=== PATIENT | female | born 1955 | race Caucasian/White ===

== ENCOUNTER 2016-11-08 10:02 | Inpatient (IN) ==
[2016-11-08] MEDS ORDERED: SODIUM CHLORIDE 0.9% 1,000 ML IV STA (10:55)
[2016-11-08 10:57] LABS: Basophils # 0.1 10*3/uL (0.0-0.2); Basophils % 0.4 % (0.0-0.8); Eosinophils # 0.1 10*3/uL (0.0-0.87); Eosinophils % 0.3 % (0.00-10.9); Hematocrit 43.4 VOL% (35.7-47.0); Hemoglobin 14.7 GM/DL (12.0-16.0); Immature Granulocytes % 0.9 %; Immature Granulocytes Absolute 0.28 #; Lymphocytes # 3.4 10*3/uL (1.4-4.0); Lymphocytes % 11.2 % (21.3-54.2); Mean Corpuscular HGB Conc 33.9 GM/DL (32-36); Mean Corpuscular Hemoglobin 30 PG (27-34); Mean Corpuscular Volume 88.4 FL (87-102); Mean Platelet Volume 11.7 FL (9.6-12.0); Monocytes # 2.2 10*3/uL (0.11-0.8); Monocytes % 7.5 % (1.7-12.7); Neutrophils % 79.7 % (38.7-73.9); Platelet Count 299 T/CUMM (130-400); Red Blood Count 4.91 MC/CUMM (3.8-5.5); Red Cell Distribution Width 13.2 % (9.3-17.3)
--- NOTE | 2016-11-08 11:05 | Emergency Department Note ---
Arrival - Arrival Chief Complaint: Upper Respiratory Stated Complaint: Flu/dehydrated ED Nursing Triage Note: pt to triage via wc with c/o having cold s/s. pt states onset sunday. states having sinus congestion, sore throat, coughing, headache, body aches, chills. Mode of Arrival: Wheelchair Time Seen by Provider: 11/08/16 10:24 - History of Present Illness HPI Narrative: Patient presents to the ER today with complaints of headache, congestion, fever , productive cough, sore throat, chills, and body aches since Sunday night. Reports a max temp of 101 and states she is coughing up thick green sputum. She states she got some medicine from her brother on Sunday and thought it was a Z-Dion but it ended up being in a Medrol Dosepak that she took 4 days of. She does report she is a smoker but is trying to quit. PCP-Dr. Singh Allergies-sulfa PMHx-hypertension, neuropathy, bipolar, depression Allergies/Adverse Reactions: Allergies Allergy/AdvReac Type Severity Reaction Status Date / Time Sulfa (Sulfonamide Allergy RASH Verified 11/08/16 10:10 Antibiotics) Home Medications: Home Medications Medication Instructions Recorded Confirmed Type Propranolol HCl [Propranolol Tab] 40 mg PO BEDTIME 11/08/16 11/08/16 History hydroCHLOROthiazide 25 mg PO DAILY 11/08/16 11/08/16 History [Hydrochlorothiazide] traZODone [Desyrel] 150 mg PO BEDTIME 11/08/16 11/08/16 History Review of System - Review of System 12 point system: reviewed and no additional remarkable complaints except as stated - Review of System Constitutional: Present: as per HPI, chills, fever Head/Ears/Nose/Throat: Present: see HPI, sore throat Respiratory: Present: as per HPI, cough Cardiovascular: Absent: chest pain Neurological: Present: headache Medical,Surgical,& Family Hx - Medical History Cardio: History of: Hypertension Psychological: History of: Bipolar Disorder, Depression - Social History Smoking Status: Current every day smoker Frequency of Alcohol Use: None Type of Drug Use: None Exam Physical Examination: General General appearance: 61-year-old white female is alert and in no apparent distress - Head Head exam: Present: atraumatic, normocephalic, normal inspection - Eye Eye exam: Present: normal appearance, PERRL, EOMI - ENT ENT exam: Present: normal exam, normal oropharynx, mucous membranes moist - Neck Neck exam: Present: normal inspection, full ROM, trachea midline - Chest Chest inspection: Present: normal inspection, symmetric chest wall rise - Respiratory Respiratory exam: Present: Coarse rhonchi noted to the left and lower right lungs, coarse lung sounds of her right - Cardiovascular Cardiovascular exam: Present: regular rate, normal rhythm, normal heart sounds - Abdominal Exam Abdominal exam: Present: soft, normal bowel sounds - Rectal Exam Rectal exam: Present: deferred - Extremities Exam Extremities exam: Present: normal inspection, full ROM, normal capillary refill - Back Exam Back exam: Present: normal inspection, full ROM - Neurological Exam Neurological exam: Present: alert, oriented X3, CN II-XII intact - Psychiatric Psychiatric exam: Present: normal affect, normal mood - Skin Skin exam: Present: warm, dry, intact, normal color, Vital Signs: Vital Signs Temperature 98.3 F 11/08/16 15:23 Pulse Rate 95 H 11/08/16 15:23 Respiratory Rate 18 11/08/16 15:23 Blood Pressure 160/77 11/08/16 15:23 O2 Sat by Pulse Oximetry 95 11/08/16 15:23 Results - Labs CBC & BMP: 11/08/16 10:55 11/08/16 10:55 Lab Results: I have reviewed the patients labs Labs: Laboratory Tests 11/08/16 10:55 WBC 30.0 H RBC 4.91 Hgb 14.7 Hct 43.4 MCV 88.4 MCH 30 MCHC 33.9 RDW 13.2 Plt Count 299 MPV 11.7 Neut % (Auto) 79.7 H Lymph % (Auto) 11.2 L Perry % (Auto) 7.5 Eos % (Auto) 0.3 Baso % (Auto) 0.4 Neut # (Auto) 24.0 H Lymph # (Auto) 3.4 Perry # (Auto) 2.2 H Lymphocytes 13 L Laboratory Tests 11/08/16 10:55 Sodium 130 L Potassium 5.1 Chloride 98 Carbon Dioxide 21 Anion Gap 16.1 H BUN 7 Creatinine 0.80 GFR Calculation 84 BUN/Creatinine Ratio 8.00 Glucose 87 Calculated Osmolality 256.8 L Calcium 9.1 Total Bilirubin 0.80 AST 66 H ALT 40 Alkaline Phosphatase 130 H Total Protein 7.7 Albumin 3.2 L Globulin 4.5 H Albumin/Globulin Ratio 0.7 L Laboratory Tests 11/08/16 10:50 Urine Color Yellow Urine Appearance Clear Urine pH 6.0 Ur Specific [place] 1.008 Urine Protein 30 Urine Glucose (UA) Negative Urine Ketones Negative Urine Blood Small Urine Nitrate Negative Urine Bilirubin Negative Urine Urobilinogen < 2.0 H Urine Leukocytes Negative Urine RBC <1 Urine WBC <1 Ur Squamous Epith Cells Occasional Urine Mucus Occasional Ur Culture Indicated? Not indicated Laboratory Tests 11/08/16 10:50 Urine Opiates Screen Negative Ur Barbiturates Screen Negative Ur Phencyclidine Scrn Negative U Amphetamine/Methamph Negative U Benzodiazepines Scrn Negative U Cocaine Metab Screen Negative U Cannabinoids Screen Negative - Impressions Ordering Physician: Kiki Escobedo NP Date of Service: 11/08/16 Procedure(s): XR chest 2V Accession Number(s): [id number] cc: Kiki Escobedo [employer]PERATOR~ XR chest 2V Indication: Congestion Comparison: Chest x-ray dated November 19, 2014 Technique: Frontal and lateral views of the chest. Findings: The cardiomediastinal silhouette is stable in configuration. Chronic/emphysematous change of the lungs without focal consolidation, pleural effusion, or pneumothorax. Visualized osseous and surrounding soft tissue structures appear grossly unchanged. IMPRESSION: Stable chest x-ray. Chronic/emphysematous change of the lungs. PROCEDURE INTERPRETED AT [facility] DEPARTMENT OF RADIOLOGY Final Report Signed by: Dr Carlos Lobato - Diagnostic Findings Procedure: Chest x-ray: report reviewed by me, image reviewed by me (See Impression ) Disposition Clinical Impression: Upper respiratory infection, COPD (chronic obstructive pulmonary disease) Case discussed with: patient, patient's family Disposition: Still a Patient Condition: Stable
[2016-11-08 11:09] LABS: Apearance,Urine CLEAR (Clear); Bilirubin,Urine Negative (Negative); Blood, Urine Small mg/dL (Negative); Glucose,Urine (UA) Negative (Negative); Ketones,Urine Negative (Negative); Mucus,Urine Occasional /LPF (Occasional); Nitrite,Urine Negative (Negative); Protein,Urine 30 MG/DL; RBC,Urine <1 /HPF (0-4); Squamous Epithelial Cell,Urine Occasional /HPF (0-10); Urine Color Yellow (Yellow); Urine Specific Gravity 1.008 (1.001-1.035); Urine Urobilinogen < 2.0 EU/DL (0.2-1.0); WBC,Urine <1 /HPF (0-6)
[2016-11-08 11:20] LABS: Barbiturates Screen,Urine Negative (Negative); Benzodiazepines Screen,Urine Negative (Negative); Cannabinoid Screen,Urine Negative (Negative); Opiate Screen,Urine Negative (Negative); Phencyclidine Screen,Urine Negative (Negative)
[2016-11-08 11:38] LABS: Band Neutrophils 1 % (0-10); Hypochromasia 1+; Lymphocytes 13 % (20-55); Microcytosis 1+; Platelet Estimate Adequate; Segmented Neutrophils 80 % (50-85); Total Cells Counted 100
[2016-11-08 11:46] LABS: Albumin 3.2 G/DL (3.4-5.0); Bilirubin,Total 0.8 MG/DL (0.2-1.0); Calcium 9.1 MG/DL (8.5-10.1); Osmolality,Calculated 256.8 MOS/KG (273-304); Potassium 5.1 MMOL/L (3.5-5.1); Total Protein 7.7 G/DL (6.4-8.3)
--- NOTE | 2016-11-08 11:58 | XRay Report ---
XR chest 2V Indication: Congestion Comparison: Chest x-ray dated November 19, 2014 Technique: Frontal and lateral views of the chest. Findings: The cardiomediastinal silhouette is stable in configuration. Chronic/emphysematous change of the lungs without focal consolidation, pleural effusion, or pneumothorax. Visualized osseous and surrounding soft tissue structures appear grossly unchanged. IMPRESSION: Stable chest x-ray. Chronic/emphysematous change of the lungs. PROCEDURE INTERPRETED AT [facility] DEPARTMENT OF RADIOLOGY Final Report Signed by: Dr Carlos Lobato
[2016-11-08] MEDS ORDERED: cefTRIAXone 1,000 MG in SODIUM CHLORIDE 0.9% 100 ML IV STA (13:28)
[2016-11-08] MEDS ORDERED: cefTRIAXone 1,000 MG VIAL ONE (13:29)
[2016-11-08] MEDS ORDERED: ACETAMINOPHEN 325 MG TABLET PO PRN (15:31)
[2016-11-08] MEDS ORDERED: ALBUTEROL 2.5 MG/3 ML NEB RESP TX PRN (15:31)
[2016-11-08] MEDS ORDERED: ALBUTEROL/IPRATROPIUM 3 ML NEB RESP TX PRN (15:31)
--- NOTE | 2016-11-08 15:39 | Hospitalist History & Physical ---
<Lane Diggs - Last Filed: 11/08/16 15:34> Assessment and Plan (1) COPD (chronic obstructive pulmonary disease) Status: Acute Assessment and plan: Admit patient. Give IV antibiotics. PRN breathing treatments. Current Visit: Yes (2) Tobacco abuse Status: Acute Assessment and plan: Smoker for 47 years Current Visit: Yes (3) Depression Status: Chronic Current Visit: Yes (4) Anxiety Status: Chronic Current Visit: Yes History of Present Illness Chief complaint: upper respiratory infection History of present illness: Ms. Aponte is a 61 year old white female with a history of hypertension, neuropathy, bipolar disorder, and depression that presents to the ED today with complaints of headache, congestion, fever, productive cough, and body aches since Sunday. Pt. also reports some mild nausea and diarrhea but no vomiting. She reports a max temp and 101 and states that she just does not "feel good". Pt. states that the cough is productive and is thick and green in color. She denies chest pain, She states that when she first got sick she took medication from her brother on Sunday because she thought it was a Zpack but it turns out it was some steroids. It was a Medrol Dosepak and she took 4 days of the medicine. Pt reports being an everyday smoker but states she quit this morning. Pt. denies any other issues in the ED at this time. Pt's WBC is 30. She also has a Na of 130. CXR shows negative chest XR that reveals chronic/emphysematous change of the lungs. She will be admitted to the hospitalist service for further eval and treatment. Home Medications Medication Instructions Recorded Confirmed Type Propranolol HCl [Propranolol Tab] 40 mg PO BEDTIME 11/08/16 11/08/16 History hydroCHLOROthiazide 25 mg PO DAILY 11/08/16 11/08/16 History [Hydrochlorothiazide] traZODone [Desyrel] 150 mg PO BEDTIME 11/08/16 11/08/16 History Allergies Allergy/AdvReac Type Severity Reaction Status Date / Time Sulfa (Sulfonamide Allergy RASH Verified 11/08/16 10:10 Antibiotics) Medical,Surgical,& Family Hx - Medical History Cardio: History of: Hypertension Psychological: History of: Bipolar Disorder, Depression - Social History Smoking Status: Current every day smoker Frequency of Alcohol Use: None Type of Drug Use: None Functional capacity: independent ambulation - Constitutional Constitutional: Present: chills, fever(s), night sweats, weakness - EENT Eyes: Present: requires corrective lense. Absent: blurry vision Ears: Absent: decreased hearing Nose, mouth and throat: Present: headache(s). Absent: hoarseness - Cardiovascular Cardiovascular: Absent: chest pain at rest, dyspnea, edema - Respiratory Respiratory: Present: cough (productive) - Gastrointestinal Gastrointestinal: Present: nausea. Absent: abdominal pain, vomiting - Genitourinary Genitourinary: Absent: difficulty urinating - Neurological Neurological: Present: headache(s). Absent: confusion, dizziness - Psychiatric Psychiatric: Present: anxiety, depression Exam - Constitutional Vitals: Period Temp Pulse Resp BP Sys/Chang Pulse Ox Last 24 Hr 98.3 F-98.3 F 79-87 18-18 123-173/83-109 96 General appearance: normal weight, no acute distress - Head Head exam: Present: normal inspection, normocephalic - Eye Eye exam: Present: EOMI. Absent: scleral icterus Pupils: Present: ALE - Respiratory Respiratory exam: Present: other (coarse). Absent: wheezes - Cardiovascular Cardiovascular exam: Present: regular rate and rhythm - GI/Abdominal GI/Abdominal exam: Present: normal bowel sounds, soft. Absent: tenderness - Extremities Exam Extremities exam: Present: normal capillary refill. Absent: edema - Neurological Exam Neurological exam: Present: alert, oriented X3 - Psychiatric Psychiatric exam: Present: normal affect, normal mood - Skin Skin exam: Present: normal color, warm, dry Results - Labs CBC & BMP: 11/08/16 10:55 11/08/16 10:55 Lab Results: I have reviewed the past 24 hour labs <Antonio Gutierrez - Last Filed: 11/08/16 16:31> History of Present Illness History of present illness: Patient seen and examined independently of BOOKING CLERK Diggs, agree with history, assessment and plan as documented. 61 y/o WF being admitted with COPD exacerbation. Will treat with scheduled duonebs and abx for now. Leukocytosis most likely secondary to steroid use. Patient also with hyponatremia. Will check osmolality. IV NS for now. Exam - Constitutional Vitals: Period Temp Pulse Resp BP Sys/Chang Pulse Ox Last 24 Hr 98.3 F-98.3 F 79-95 18-18 123-173/77-109 95-96 Results - Labs CBC & BMP: 11/08/16 10:55 11/08/16 10:55
[2016-11-08] MEDS: NICOTINE 21 MG/24 HR PATCH TRANSDERM PRN (15:59)
[2016-11-08] MEDS: SODIUM CHLORIDE 0.9% 1,000 ML IV SCH (16:00)
[2016-11-08] MEDS: AZITHROMYCIN INJ 500 MG in SODIUM CHLORIDE 0.9% 250 ML IV SCH (16:39)
[2016-11-08] MEDS: ALBUTEROL/IPRATROPIUM 3 ML NEB RESP TX SCH ×2 (20:03→23:35)
[2016-11-08] MEDS: PROPRANOLOL 40 MG TABLET PO SCH (20:52)
[2016-11-09] MEDS: SODIUM CHLORIDE 0.9% 1,000 ML IV SCH (03:00)
[2016-11-09] MEDS: ALBUTEROL/IPRATROPIUM 3 ML NEB RESP TX SCH ×5 (03:17→20:31)
[2016-11-09 07:28] LABS: Basophils # 0.1 10*3/uL (0.0-0.2); Basophils % 0.2 % (0.0-0.8); Eosinophils # 0.1 10*3/uL (0.0-0.87); Eosinophils % 0.5 % (0.00-10.9); Hematocrit 36.5 VOL% (35.7-47.0); Hemoglobin 12.1 GM/DL (12.0-16.0); Immature Granulocytes % 0.8 %; Immature Granulocytes Absolute 0.18 #; Lymphocytes # 2.2 10*3/uL (1.4-4.0); Lymphocytes % 10.3 % (21.3-54.2); Mean Corpuscular HGB Conc 33.2 GM/DL (32-36); Mean Corpuscular Hemoglobin 30 PG (27-34); Mean Corpuscular Volume 90.3 FL (87-102); Mean Platelet Volume 12.1 FL (9.6-12.0); Monocytes # 1.7 10*3/uL (0.11-0.8); Neutrophils # 17.4 10*3/uL (1.4-7.4); Neutrophils % 80.2 % (38.7-73.9); Platelet Count 238 T/CUMM (130-400); Red Blood Count 4.04 MC/CUMM (3.8-5.5); Red Cell Distribution Width 13.2 % (9.3-17.3); White Blood Count 21.7 T/CUMM (4-12)
[2016-11-09 07:55] LABS: Band Neutrophils 3 % (0-10); Giant Platelets Few; Hypochromasia 1+; Lymphocytes 11 % (20-55); Microcytosis Slight; Platelet Estimate Adequate; Segmented Neutrophils 82 % (50-85); Total Cells Counted 100
[2016-11-09 08:06] LABS: Calcium 8.6 MG/DL (8.5-10.1); Magnesium 2.2 MG/DL (1.8-2.4); Osmolality,Calculated 276.3 MOS/KG (273-304); Potassium 3.3 MMOL/L (3.5-5.1); Risk Ratio 3.5; Thyroid Stimulating Hormone 0.786 uIU/ml (0.358-3.74); VLDL CHOLESTEROL 19.8 MG/DL
[2016-11-09] MEDS ORDERED: hydroCHLOROthiazide 25 MG TABLET PO SCH (09:00)
[2016-11-09] MEDS: PANTOPRAZOLE 40 MG TABLET PO SCH (09:58)
[2016-11-09] MEDS: cefTRIAXone 1,000 MG in SODIUM CHLORIDE 0.9% 100 ML IV SCH (10:04)
[2016-11-09] MEDS ORDERED: POTASSIUM CHLORIDE 20 MEQ TABLET PO PRN (12:13)
--- NOTE | 2016-11-09 12:44 | Hospitalist Progress Note ---
<Lane Diggs - Last Filed: 11/09/16 12:48> Assessment and Plan (1) COPD (chronic obstructive pulmonary disease) Status: Acute Assessment and plan: Admit patient. Give IV antibiotics. PRN breathing treatments. 11/09 Continue treatment. Current Visit: Yes (2) Tobacco abuse Status: Acute Assessment and plan: Smoker for 47 years Current Visit: Yes (3) Depression Status: Chronic Current Visit: Yes (4) Anxiety Status: Chronic Current Visit: Yes Hospitalist: Subjective Interval history: Pt. seen and examined. Pt states she is still having productive sputum but that her breathing is much better. Supplemental O2 is present but she is not using it as much as before. Pt. is complaining of mild headache. We will continue current treatment. Exam - Constitutional Vitals: Period Temp Pulse Resp BP Sys/Chang Pulse Ox Last 24 Hr 97.0 F-98.6 F 68-95 16-20 124-170/60-109 92-99 General appearance: normal weight, no acute distress - Head Head exam: Present: normal inspection, normocephalic - Eye Eye exam: Present: EOMI. Absent: scleral icterus Pupils: Present: ALE - ENT ENT exam: Present: normal exam - Respiratory Respiratory exam: Present: clear to auscultation bilaterally. Absent: wheezes - Cardiovascular Cardiovascular exam: Present: regular rate and rhythm - GI/Abdominal GI/Abdominal exam: Present: normal bowel sounds, soft. Absent: tenderness - Extremities Exam Extremities exam: Present: normal inspection, normal capillary refill, full ROM. Absent: edema - Neurological Exam Neurological exam: Present: alert, oriented X3 - Psychiatric Psychiatric exam: Present: normal affect, normal mood - Skin Skin exam: Present: normal color, warm, dry Results - Labs CBC & BMP: 11/09/16 05:37 11/09/16 05:37 Lab Results: I have reviewed the past 24 hour labs Specialty Discharge - Follow Up or Referrals <Antonio Gutierrez - Last Filed: 11/09/16 16:13> Hospitalist: Subjective Interval history: Patient seen and examined independently of MELO Diggs, agree with assessment and plan as documented. Patient feeling a little better. Exam - Constitutional Vitals: Period Temp Pulse Resp BP Sys/Chang Pulse Ox Last 24 Hr 97.0 F-98.6 F 68-94 16-20 124-160/60-89 92-99 Results - Labs CBC & BMP: 11/09/16 05:37 11/09/16 05:37
[2016-11-09] MEDS: AZITHROMYCIN INJ 500 MG in SODIUM CHLORIDE 0.9% 250 ML IV SCH (17:19)
[2016-11-09] MEDS: ONDANSETRON 4 MG/2 ML VIAL IV PRN (19:34)
[2016-11-09] MEDS: clonazePAM 0.5 MG TABLET PO PRN (19:38)
[2016-11-09] MEDS: lamoTRIgine 100 MG TABLET PO SCH (20:30)
[2016-11-09] MEDS: PROPRANOLOL 40 MG TABLET PO SCH (20:30)
[2016-11-10] MEDS: ALBUTEROL/IPRATROPIUM 3 ML NEB RESP TX SCH ×7 (00:23→23:37)
[2016-11-10 06:48] LABS: Basophils # 0.1 10*3/uL (0.0-0.2); Basophils % 0.3 % (0.0-0.8); Eosinophils # 0.2 10*3/uL (0.0-0.87); Eosinophils % 1.3 % (0.00-10.9); Hematocrit 33.9 VOL% (35.7-47.0); Hemoglobin 11.3 GM/DL (12.0-16.0); Immature Granulocytes % 1.6 %; Immature Granulocytes Absolute 0.28 #; Lymphocytes # 2.3 10*3/uL (1.4-4.0); Lymphocytes % 13.2 % (21.3-54.2); Mean Corpuscular HGB Conc 33.3 GM/DL (32-36); Mean Corpuscular Hemoglobin 30 PG (27-34); Mean Corpuscular Volume 90.2 FL (87-102); Monocytes # 1.2 10*3/uL (0.11-0.8); Monocytes % 6.9 % (1.7-12.7); Neutrophils # 13.2 10*3/uL (1.4-7.4); Neutrophils % 76.7 % (38.7-73.9); Platelet Count 253 T/CUMM (130-400); Red Blood Count 3.76 MC/CUMM (3.8-5.5); Red Cell Distribution Width 13.2 % (9.3-17.3); White Blood Count 17.2 T/CUMM (4-12)
--- NOTE | 2016-11-10 07:23 | XRay Report ---
XR knee 2V RT Indication: Complaining of knee pain after fall Comparison: None Technique: Frontal and lateral views of the right knee Findings: Moderate to severe tricompartmental degenerative change, greatest within the lateral compartment. Prominent calcific density along posterior knee joint measuring up to 3.2 cm may reflect intra-articular body. No acute fracture or dislocation demonstrated. IMPRESSION: As above. PROCEDURE INTERPRETED AT [facility] DEPARTMENT OF RADIOLOGY Final Report Signed by: Dr Carlos Lobato
[2016-11-10 07:26] LABS: Calcium 8.9 MG/DL (8.5-10.1); Magnesium 2.2 MG/DL (1.8-2.4); Osmolality,Calculated 276.3 MOS/KG (273-304); Potassium 3.5 MMOL/L (3.5-5.1)
--- NOTE | 2016-11-10 07:26 | XRay Report ---
XR wrist 3V RT Indication: Complaining of wrist pain after fall Comparison: None Technique: Frontal, lateral, and oblique views of the right wrist. Findings: No acute fracture or dislocation demonstrated. No radiopaque foreign body visualized. IMPRESSION: As above. PROCEDURE INTERPRETED AT [facility] DEPARTMENT OF RADIOLOGY Final Report Signed by: Dr Carlos Lobato
[2016-11-10 07:29] LABS: Calcium 8.5 MG/DL (8.5-10.1); Osmolality,Calculated 276.3 MOS/KG (273-304); Potassium 3.5 MMOL/L (3.5-5.1)
--- NOTE | 2016-11-10 08:17 | XRay Report ---
XR chest 1V Indication: SOB Comparison: Chest x-ray dated November 08, 2016 Technique: Single frontal view of the chest. Findings: The cardiomediastinal silhouette is stable in configuration. Interval development of bilateral lower lung opacification suspicious for pneumonia, left greater than right. Suspect small left pleural fluid. Visualized osseous and surrounding soft tissue structures appear grossly unchanged. IMPRESSION: As above. PROCEDURE INTERPRETED AT [facility] DEPARTMENT OF RADIOLOGY Final Report Signed by: Dr Carlos Lobato
[2016-11-10] MEDS: VENLAFAXINE XR 75 MG CAPSULE PO SCH (09:00)
[2016-11-10] MEDS: PANTOPRAZOLE 40 MG TABLET PO SCH (09:00)
[2016-11-10] MEDS: lamoTRIgine 100 MG TABLET PO SCH ×2 (09:00→20:35)
[2016-11-10] MEDS: cefTRIAXone 1,000 MG in SODIUM CHLORIDE 0.9% 100 ML IV SCH (09:02)
--- NOTE | 2016-11-10 09:24 | XRay Report ---
Exam: XR foot 2V RT Date: 11/10/2016 8:57 AM Comparison: None Indication: Right foot pain after injury Technique:[AP and lateral right foot] Findings: Soft tissue swelling. Minimal joint space narrowing. No fracture or dislocation. Impression: Soft tissue swelling with minimal DJD. No definite fracture or dislocation. PROCEDURE INTERPRETED AT [facility] DEPARTMENT OF RADIOLOGY Final Report Signed by: Dr. Radha Franco
[2016-11-10] MEDS: ONDANSETRON 4 MG/2 ML VIAL IV PRN (09:59)
[2016-11-10] MEDS ORDERED: chlordiazePOXIDE 25 MG CAPSULE PO PRN (14:19)
[2016-11-10] MEDS ORDERED: LORazepam 2 MG/1 ML VIAL IV PRN (14:19)
--- NOTE | 2016-11-10 16:21 | Hospitalist Progress Note ---
Assessment and Plan (1) Bipolar disorder Status: Acute Assessment and plan: Home medications Current Visit: Yes (2) Tobacco abuse Status: Acute Current Visit: Yes (3) COPD (chronic obstructive pulmonary disease) Status: Acute Assessment and plan: duonebs, abx, supplemental oxygen Current Visit: Yes (4) Depression Status: Chronic Current Visit: Yes (5) Anxiety Status: Chronic Current Visit: Yes Hospitalist: Subjective Interval history: No acute events overnight. Patient reports that she has not taken her psychiatry medications in over a week. She did fall yesterday. Exam - Constitutional Vitals: Period Temp Pulse Resp BP Sys/Chang Pulse Ox Last 24 Hr 97.6 F-98.6 F 68-83 18-20 110-161/53-79 2-99 General appearance: over weight - Head Head exam: Present: normocephalic, atraumatic - Eye Eye exam: Present: EOMI Pupils: Present: ALE - ENT ENT exam: Present: normal exam - Neck Neck exam: Present: normal inspection - Respiratory Respiratory exam: Present: clear to auscultation bilaterally. Absent: rhonchi, wheezes - Cardiovascular Cardiovascular exam: Present: regular rate and rhythm - GI/Abdominal GI/Abdominal exam: Present: normal bowel sounds, soft. Absent: tenderness, rebound - Extremities Exam Extremities exam: Present: normal inspection - Back Exam Back exam: Present: normal inspection - Neurological Exam Neurological exam: Present: alert, oriented X3 - Psychiatric Psychiatric exam: Present: normal affect, normal mood - Skin Skin exam: Present: warm, intact Results - Labs CBC & BMP: 11/10/16 06:36 11/10/16 06:36 Specialty Discharge - Follow Up or Referrals
[2016-11-10] MEDS: AZITHROMYCIN INJ 500 MG in SODIUM CHLORIDE 0.9% 250 ML IV SCH (17:10)
[2016-11-10] MEDS: NICOTINE 21 MG/24 HR PATCH TRANSDERM PRN (20:35)
[2016-11-10] MEDS: PROPRANOLOL 40 MG TABLET PO SCH (20:35)
[2016-11-10] MEDS: guaiFENesin 200 MG/10 ML UDCUP PO PRN (22:20)
[2016-11-11 03:09] LABS: Basophils # 0.1 10*3/uL (0.0-0.2); Basophils % 0.4 % (0.0-0.8); Eosinophils # 0.5 10*3/uL (0.0-0.87); Eosinophils % 3.4 % (0.00-10.9); Hematocrit 32.8 VOL% (35.7-47.0); Hemoglobin 10.8 GM/DL (12.0-16.0); Immature Granulocytes % 2.4 %; Immature Granulocytes Absolute 0.33 #; Lymphocytes # 2.2 10*3/uL (1.4-4.0); Lymphocytes % 15.8 % (21.3-54.2); Mean Corpuscular HGB Conc 32.9 GM/DL (32-36); Mean Corpuscular Hemoglobin 30 PG (27-34); Mean Corpuscular Volume 90.1 FL (87-102); Mean Platelet Volume 11.4 FL (9.6-12.0); Monocytes # 1.1 10*3/uL (0.11-0.8); Monocytes % 7.8 % (1.7-12.7); Neutrophils # 9.5 10*3/uL (1.4-7.4); Neutrophils % 70.2 % (38.7-73.9); Platelet Count 257 T/CUMM (130-400); Red Blood Count 3.64 MC/CUMM (3.8-5.5); Red Cell Distribution Width 13.3 % (9.3-17.3); White Blood Count 13.6 T/CUMM (4-12)
[2016-11-11] MEDS: ALBUTEROL/IPRATROPIUM 3 ML NEB RESP TX SCH ×5 (03:12→19:51)
[2016-11-11 03:39] LABS: Calcium 8.3 MG/DL (8.5-10.1); Magnesium 2.2 MG/DL (1.8-2.4); Osmolality,Calculated 277.3 MOS/KG (273-304); Potassium 3.5 MMOL/L (3.5-5.1)
[2016-11-11 03:48] LABS: Folate 22.2 NG/ML (5.4-24.0)
[2016-11-11] MEDS: PANTOPRAZOLE 40 MG TABLET PO SCH (08:24)
[2016-11-11] MEDS: THIAMINE 100 MG TABLET PO SCH (08:24)
[2016-11-11] MEDS: lamoTRIgine 100 MG TABLET PO SCH ×2 (08:24→20:58)
[2016-11-11] MEDS: VENLAFAXINE XR 75 MG CAPSULE PO SCH (08:25)
[2016-11-11] MEDS: FOLIC ACID 1 MG TABLET PO SCH (08:25)
[2016-11-11] MEDS: cefTRIAXone 1,000 MG in SODIUM CHLORIDE 0.9% 100 ML IV SCH (08:27)
[2016-11-11] MEDS: clonazePAM 0.5 MG TABLET PO PRN ×2 (12:57→18:18)
[2016-11-11] MEDS ORDERED: SODIUM CHLORIDE 0.65% NASAL SPRAY 45 ML BOTTLE BOTH NARES PRN (15:54)
--- NOTE | 2016-11-11 15:58 | Hospitalist Progress Note ---
Assessment and Plan (1) Bipolar disorder Status: Acute Assessment and plan: Home medications Current Visit: Yes (2) Tobacco abuse Status: Acute Current Visit: Yes (3) COPD (chronic obstructive pulmonary disease) Status: Acute Assessment and plan: duonebs, abx, supplemental oxygen Current Visit: Yes (4) Depression Status: Chronic Current Visit: Yes (5) Anxiety Status: Chronic Current Visit: Yes Hospitalist: Subjective Interval history: No acute events overnight. Patient reports sinus pain and that her breathing is intermittently bad. Her main concern seems to be her family not coming to visit her. Exam - Constitutional Vitals: Period Temp Pulse Resp BP Sys/Chang Pulse Ox Last 24 Hr 97.4 F-98.2 F 65-98 18-20 115-151/62-87 92-98 General appearance: normal weight - Head Head exam: Present: normocephalic, atraumatic - Eye Eye exam: Present: EOMI Pupils: Present: ALE - ENT ENT exam: Present: normal exam - Neck Neck exam: Present: normal inspection - Respiratory Respiratory exam: Present: clear to auscultation bilaterally. Absent: rhonchi, wheezes - Cardiovascular Cardiovascular exam: Present: regular rate and rhythm - GI/Abdominal GI/Abdominal exam: Present: normal bowel sounds, soft. Absent: tenderness, rebound - Extremities Exam Extremities exam: Present: normal inspection - Back Exam Back exam: Present: normal inspection - Neurological Exam Neurological exam: Present: alert, oriented X3 - Psychiatric Psychiatric exam: Present: normal affect, normal mood - Skin Skin exam: Present: warm, intact Results - Labs CBC & BMP: 11/11/16 02:49 11/11/16 02:49 Specialty Discharge - Follow Up or Referrals
[2016-11-11] MEDS: predniSONE 20 MG TABLET PO SCH (16:20)
[2016-11-11] MEDS: AZITHROMYCIN INJ 500 MG in SODIUM CHLORIDE 0.9% 250 ML IV SCH (16:21)
[2016-11-11] MEDS: PROPRANOLOL 40 MG TABLET PO SCH (20:58)
[2016-11-11] MEDS: NICOTINE 21 MG/24 HR PATCH TRANSDERM PRN (21:01)
[2016-11-12] MEDS: ALBUTEROL/IPRATROPIUM 3 ML NEB RESP TX SCH ×6 (00:45→19:16)
[2016-11-12] MEDS: guaiFENesin 200 MG/10 ML UDCUP PO PRN (03:08)
[2016-11-12] MEDS: THIAMINE 100 MG TABLET PO SCH (08:37)
[2016-11-12] MEDS: VENLAFAXINE XR 75 MG CAPSULE PO SCH (08:37)
[2016-11-12] MEDS: predniSONE 20 MG TABLET PO SCH (08:37)
[2016-11-12] MEDS: FOLIC ACID 1 MG TABLET PO SCH (08:38)
[2016-11-12] MEDS: PANTOPRAZOLE 40 MG TABLET PO SCH (08:38)
[2016-11-12] MEDS: lamoTRIgine 100 MG TABLET PO SCH ×2 (08:38→21:42)
[2016-11-12] MEDS: clonazePAM 0.5 MG TABLET PO PRN ×2 (09:03→17:55)
--- NOTE | 2016-11-12 15:35 | Hospitalist Progress Note ---
Assessment and Plan (1) Bipolar disorder Status: Acute Assessment and plan: Home medications Current Visit: Yes (2) Tobacco abuse Status: Acute Current Visit: Yes (3) COPD (chronic obstructive pulmonary disease) Status: Acute Assessment and plan: duonebs, abx, supplemental oxygen Current Visit: Yes (4) Depression Status: Chronic Current Visit: Yes (5) Anxiety Status: Chronic Current Visit: Yes Hospitalist: Subjective Interval history: No acute events overnight. Patient reports that she is doing better. Plan for discharge tomorrow. Exam - Constitutional Vitals: Period Temp Pulse Resp BP Sys/Chang Pulse Ox Last 24 Hr 97.0 F-98 F 60-92 16-22 139-183/65-86 75-99 General appearance: over weight - Head Head exam: Present: normocephalic, atraumatic - Eye Eye exam: Present: EOMI Pupils: Present: ALE - ENT ENT exam: Present: normal exam - Neck Neck exam: Present: normal inspection - Respiratory Respiratory exam: Present: clear to auscultation bilaterally. Absent: rhonchi, wheezes - Cardiovascular Cardiovascular exam: Present: regular rate and rhythm - GI/Abdominal GI/Abdominal exam: Present: normal bowel sounds, soft. Absent: tenderness, rebound - Extremities Exam Extremities exam: Present: normal inspection - Back Exam Back exam: Present: normal inspection - Neurological Exam Neurological exam: Present: alert, oriented X3 - Psychiatric Psychiatric exam: Present: normal affect, normal mood - Skin Skin exam: Present: warm, intact Results - Labs CBC & BMP: 11/11/16 02:49 11/11/16 02:49 Specialty Discharge - Follow Up or Referrals
[2016-11-12] MEDS: cefTRIAXone 1,000 MG in SODIUM CHLORIDE 0.9% 100 ML IV SCH (16:40)
[2016-11-12] MEDS: NICOTINE 21 MG/24 HR PATCH TRANSDERM PRN (17:57)
[2016-11-12] MEDS: PROPRANOLOL 40 MG TABLET PO SCH (21:42)
[2016-11-13] MEDS: ALBUTEROL/IPRATROPIUM 3 ML NEB RESP TX SCH ×3 (00:13→07:34)
[2016-11-13] MEDS: predniSONE 20 MG TABLET PO SCH (08:18)
[2016-11-13] MEDS: VENLAFAXINE XR 75 MG CAPSULE PO SCH (08:18)
[2016-11-13] MEDS: THIAMINE 100 MG TABLET PO SCH (08:18)
[2016-11-13] MEDS: lamoTRIgine 100 MG TABLET PO SCH (08:18)
[2016-11-13] MEDS: FOLIC ACID 1 MG TABLET PO SCH (08:18)
[2016-11-13] MEDS: PANTOPRAZOLE 40 MG TABLET PO SCH (08:18)
[2016-11-13 08:31] VITALS: BP 164/95
--- NOTE | 2016-11-13 09:11 | Discharge Summary ---
<Sully Tangda - Last Filed: 11/13/16 09:08> Hospital Course - Hospital Course Hospital Course: Ms Aponte 61 y/o with PMHx of hypertension, neuropathy, depression and bipolar presented to the ED non-urgent on 11/08/16 for c/o headache, congestion, fever, sore throat, chills and productive cough. While in non-urgent ED: CXR: chronic /emphysematous change of the lungs. LABS: WBC 30.0; Na 130; AST 66; ALT 40; Alkaline phosphate 130; urine negative. She complained of knee pain after falling: right knee xray: no acute fracture or dislocation demonstrated. Right wrist: no acute fracture or dislocation demonstrated. Right foot xray: soft tissue swelling; minimal joint space narrowing; no fracture or dislocation. She was admitted 11/08/16 to [facility] for further evaluation of upper respiratory infection. Repeat chest xray showed bilateral lower lung opacification suspicious for pneumonia; left greater than right. Treatment initiated with IV antibiotics; breathing treatments; supplemental oxygen. Sputum : Gram stain culture showed no growth; blood cultures showed no growth at 3 days. Patient continued to improve; "reported feeling better" and labs continued to trend improvement. Today labs have improved, no more fever throughout hospital stay; vital signs are stable; patient is feeling much better and feels that she is ready to be discharged home. She will need to continue home medications as instructed and will need to follow up with primary care physician. She was given information on the free clinic. Specialty Discharge - Follow Up or Referrals Discharge Plan - Discharge Data Disposition: Disch To Home/Self Care - Discharge Medications New predniSONE TAB [PredniSONE] 10 mg PO DAILY #5 tablet Continue Propranolol HCl [Propranolol Tab] 40 mg PO BEDTIME traZODone [Desyrel] 225 mg PO BEDTIME hydroCHLOROthiazide [Hydrochlorothiazide] 25 mg PO DAILY raNITIdine HCl [Ranitidine HCl] 150 mg PO BID hydrOXYzine HCl [Hydroxyzine HCl] 10 mg PO TID buPROPion XL [Wellbutrin Xl] 300 mg PO DAILY Venlafaxine HCl [Venlafaxine HCl ER] 75 mg PO DAILY lamoTRIgine [LaMICtal ODT Tab] 100 mg PO BID - Follow Up or Referral - Forms/Instructions Instructions: COPD, [employer] (GEN) Exam - Constitutional Vitals: Period Temp Pulse Resp BP Sys/Chang Pulse Ox Last 24 Hr 96.2 F-98.4 F 58-72 17-22 140-180/67-95 87-99 Discharge Results Procedures and tests throughout hospitalization: Pending Orders 11/08/16 10:41 Blood Culture Stat Labs on day of discharge: Preliminary micro results at discharge 11/08/16 10:41 Blood Culture - Preliminary Blood No growth at 3 days 11/08/16 10:41 Blood Culture - Preliminary Blood No growth at 3 days DS: Provider Date of admission: 11/08/16 14:10 Primary care physician: . No PCP Attending physician on admission: Antonio Gutierrez MD Consults: 11/08/16 15:23 Consult to Pastoral Services [CONS] Routine Comment: Pastoral Screen: Request Director Of Accounts Receivable Visit 11/08/16 15:31 Consult to Pulmonary Rehabilitation [CONS] Routine Reason for Pulmonary Rehabilitation: COPD Discharging clinician: Dilan Tang CNP <Maria Alejandra Carey - Last Filed: 11/13/16 09:12> <Antonio Gutierrez - Last Filed: 11/13/16 09:37> Hospital Course - Time spent with patient Time with patient DS: Greater than 30 minutes (35) Diagnosis - Discharge Diagnosis (1) Bipolar disorder Status: Chronic (2) Tobacco abuse Status: Chronic (3) COPD (chronic obstructive pulmonary disease) Status: Chronic (4) Depression Status: Chronic (5) Anxiety Status: Chronic Discharge Plan - Discharge Data Condition at Discharge: Stable Discharge Diet: advance to your usual diet Activity: increase activity as tolerated Hygiene: no restrictions Weight Bearing at Discharge: weight bear as tolerated Driving: no restrictions Contact your physician if you experience:: fever over 101, Shortness of breath Exam - Constitutional General appearance: over weight - Head Head exam: Present: normocephalic, atraumatic - Eye Eye exam: Present: EOMI Pupils: Present: ALE - ENT ENT exam: Present: normal exam - Neck Neck exam: Present: normal inspection - Respiratory Respiratory exam: Present: clear to auscultation bilaterally. Absent: rhonchi, wheezes - Cardiovascular Cardiovascular exam: Present: regular rate and rhythm - GI/Abdominal GI/Abdominal exam: Present: normal bowel sounds, soft. Absent: tenderness, rebound - Extremities Exam Extremities exam: Present: normal inspection - Back Exam Back exam: Present: normal inspection - Neurological Exam Neurological exam: Present: alert, oriented X3 - Psychiatric Psychiatric exam: Present: normal affect, normal mood - Skin Skin exam: Present: warm, intact
== END 2016-11-13 10:42 | disposition home or self-care (01) | DRG 190 ==
LOC: N.ED 10:02 → N.EDINP 14:10 → N.2E 15:17
PROVIDERS: ADMIT Internal Medicine; ATTEND Internal Medicine

== ENCOUNTER 2018-05-29 12:15 | Observation (INO) ==
[2018-05-29] MEDS ORDERED: methylPREDNISolone SOD SUC 125 MG/2 ML VIAL IV STA (12:44)
[2018-05-29] MEDS ORDERED: cefTRIAXone 1,000 MG in SODIUM CHLORIDE 0.9% 100 ML IV STA (12:44)
[2018-05-29] MEDS ORDERED: ONDANSETRON 4 MG/2 ML VIAL IV STA (12:44)
[2018-05-29 12:58] LABS: Basophils % 0.5 % (0.0-0.8); Eosinophils % 0.3 % (0.00-10.9); Hematocrit 50.1 VOL% (35.7-47.0); Hemoglobin 15.5 GM/DL (12.0-16.0); Immature Granulocytes % 0.5 %; Immature Granulocytes Absolute 0.04 #; Lymphocytes # 1.6 10*3/uL (1.4-4.0); Lymphocytes % 20.8 % (21.3-54.2); Mean Corpuscular HGB Conc 30.9 GM/DL (32-36); Mean Corpuscular Hemoglobin 29 PG (27-34); Mean Corpuscular Volume 92.1 FL (87-102); Mean Platelet Volume 10.7 FL (9.6-12.0); Monocytes # 0.8 10*3/uL (0.11-0.8); Monocytes % 10.8 % (1.7-12.7); Neutrophils # 5.1 10*3/uL (1.4-7.4); Neutrophils % 67.1 % (38.7-73.9); Platelet Count 297 T/CUMM (130-400); Red Blood Count 5.44 MC/CUMM (3.8-5.5); Red Cell Distribution Width 14.4 % (9.3-17.3); White Blood Count 7.6 T/CUMM (4-12)
[2018-05-29] MEDS ORDERED: ALBUTEROL 2.5 MG/3 ML NEB RESP TX SCH (13:00)
[2018-05-29 13:22] LABS: PT Patient Result 10.9 SECS
[2018-05-29 13:33] LABS: Alanine Aminotransferase 23 U/L (13-56); Albumin 3.9 G/DL (3.4-5.0); Alkaline Phosphatase 141 U/L (45-117); Aspartate Amino Transferase 19 U/L (0-37); Bilirubin,Total < 0.39 MG/DL (0.2-1.0); Blood Urea Nitrogen 11 MG/DL (7-18); Calcium 8.8 MG/DL (8.5-10.1); Glucose 117 MG/DL (74-106); Osmolality,Calculated 272.8 MOS/KG (273-304); Potassium 3.5 MMOL/L (3.5-5.1); Sodium 137 MMOL/L (136-145); Total Protein 8.4 G/DL (6.4-8.3)
[2018-05-29 14:03] LABS: Apearance,Urine Slightly Hazy (Clear); Bacteria,Urine Occasional /HPF (Few); Bilirubin,Urine Negative (Negative); Blood, Urine Moderate mg/dL (Negative); Glucose,Urine (UA) Negative (Negative); Hyaline Casts,Urine 3 /LPF (0-3); Ketones,Urine Negative (Negative); Mucus,Urine Occasional /LPF (Occasional); Nitrite,Urine Negative (Negative); Protein,Urine Negative; RBC,Urine 1 /HPF (0-4); Squamous Epithelial Cell,Urine Occasional /HPF (0-10); Urine Color Yellow (Yellow); Urine Specific Gravity 1.006 (1.001-1.035); Urine Urobilinogen < 2.0 EU/DL (0.2-1.0); WBC,Urine 7 /HPF (0-6)
[2018-05-29 14:11] LABS: Barbiturates Screen,Urine Negative (Negative); Benzodiazepines Screen,Urine Negative (Negative); Cannabinoid Screen,Urine Negative (Negative); Opiate Screen,Urine Negative (Negative); Phencyclidine Screen,Urine Negative (Negative)
[2018-05-29] MEDS ORDERED: ALBUTEROL 2.5 MG/3 ML NEB RESP TX PRN (14:16)
[2018-05-29] MEDS ORDERED: ZALEPLON 5 MG CAPSULE PO PRN (14:21)
[2018-05-29] MEDS ORDERED: PROMETHAZINE 25 MG/1 ML VIAL IM PRN (14:21)
[2018-05-29] MEDS ORDERED: NICOTINE 21 MG/24 HR PATCH TRANSDERM PRN (14:21)
[2018-05-29] MEDS ORDERED: diphenhydrAMINE CAP 25 MG CAPSULE PO PRN (14:21)
[2018-05-29] MEDS ORDERED: MORPHINE 4 MG/1 ML VIAL IV PRN (14:21)
[2018-05-29] MEDS ORDERED: ONDANSETRON 4 MG/2 ML VIAL IV PRN (14:21)
[2018-05-29] MEDS ORDERED: ACETAMINOPHEN 325 MG TABLET PO PRN (14:21)
[2018-05-29] MEDS: AZITHROMYCIN 250 MG TABLET PO SCH (18:00)
[2018-05-29] MEDS: HEPARIN 5,000 UNIT/1 ML VIAL SUBCUT SCH (18:00)
[2018-05-29] MEDS: cefTRIAXone 1,000 MG in SYRINGE 1 EACH IV SCH (18:01)
[2018-05-29] MEDS: ALBUTEROL/IPRATROPIUM 3 ML NEB RESP TX SCH (19:27)
[2018-05-29] MEDS: DOCUSATE SODIUM 100 MG CAPSULE PO SCH (20:32)
[2018-05-29] MEDS: PREGABALIN 75 MG CAPSULE PO SCH (20:32)
[2018-05-29] MEDS: METOPROLOL TARTRATE 25 MG TABLET PO SCH (20:33)
[2018-05-29] MEDS: FLUTICASONE/SALMETEROL 250-50 DISKUS 14 DOSE INH SCH (20:35)
[2018-05-29] MEDS: traZODone 50 MG TABLET PO PRN (20:35)
[2018-05-29] MEDS: methylPREDNISolone SOD SUC 40 MG/1 ML VIAL IV SCH (20:36)
[2018-05-29] MEDS: guaiFENesin/DM ER 600-30 MG TABLET PO PRN (20:44)
[2018-05-30] MEDS: HEPARIN 5,000 UNIT/1 ML VIAL SUBCUT SCH ×3 (00:40→16:46)
[2018-05-30] MEDS: ALBUTEROL/IPRATROPIUM 3 ML NEB RESP TX SCH ×4 (01:10→21:08)
[2018-05-30] MEDS: methylPREDNISolone SOD SUC 40 MG/1 ML VIAL IV SCH ×4 (03:52→20:30)
[2018-05-30 04:43] LABS: Basophils % 0.2 % (0.0-0.8); Hematocrit 43.7 VOL% (35.7-47.0); Immature Granulocytes % 0.6 %; Immature Granulocytes Absolute 0.03 #; Lymphocytes # 1.1 10*3/uL (1.4-4.0); Lymphocytes % 21.6 % (21.3-54.2); Mean Corpuscular HGB Conc 30.7 GM/DL (32-36); Mean Corpuscular Hemoglobin 28 PG (27-34); Mean Corpuscular Volume 91.6 FL (87-102); Mean Platelet Volume 11.5 FL (9.6-12.0); Monocytes # 0.2 10*3/uL (0.11-0.8); Neutrophils # 3.7 10*3/uL (1.4-7.4); Neutrophils % 74.6 % (38.7-73.9); Platelet Count 320 T/CUMM (130-400); Red Blood Count 4.77 MC/CUMM (3.8-5.5); Red Cell Distribution Width 14.2 % (9.3-17.3)
[2018-05-30 05:05] LABS: Hemoglobin 13.4 GM/DL (12.0-16.0)
[2018-05-30 05:15] LABS: Albumin 3.3 G/DL (3.4-5.0); Bilirubin,Total 0.4 MG/DL (0.2-1.0); Osmolality,Calculated 281.5 MOS/KG (273-304); Potassium 3.8 MMOL/L (3.5-5.1); Total Protein 7.7 G/DL (6.4-8.3)
[2018-05-30 05:23] LABS: Risk Ratio 3.9; Thyroid Stimulating Hormone 0.366 uIU/ml (0.358-3.74); VLDL CHOLESTEROL 16.4 MG/DL
[2018-05-30] MEDS: FLUTICASONE/SALMETEROL 250-50 DISKUS 14 DOSE INH SCH ×2 (08:48→20:09)
[2018-05-30] MEDS: guaiFENesin/DM ER 600-30 MG TABLET PO PRN (08:49)
[2018-05-30] MEDS: hydroCHLOROthiazide 25 MG TABLET PO SCH (08:49)
[2018-05-30] MEDS: PANTOPRAZOLE 40 MG TABLET PO SCH (08:49)
[2018-05-30] MEDS: DOCUSATE SODIUM 100 MG CAPSULE PO SCH ×2 (08:49→20:09)
[2018-05-30] MEDS: MULTIVITAMIN (CENTRUM) TABLET PO SCH (08:49)
[2018-05-30] MEDS: AZITHROMYCIN 250 MG TABLET PO SCH (08:49)
[2018-05-30] MEDS: PREGABALIN 75 MG CAPSULE PO SCH ×2 (08:50→20:09)
[2018-05-30] MEDS: METOPROLOL TARTRATE 25 MG TABLET PO SCH ×2 (08:50→20:09)
[2018-05-30] MEDS: cefTRIAXone 1,000 MG in SYRINGE 1 EACH IV SCH (16:46)
[2018-05-30] MEDS: traZODone 50 MG TABLET PO PRN (20:09)
[2018-05-31] MEDS: ALBUTEROL/IPRATROPIUM 3 ML NEB RESP TX SCH ×2 (00:20→09:09)
[2018-05-31] MEDS: HEPARIN 5,000 UNIT/1 ML VIAL SUBCUT SCH ×2 (00:43→09:03)
[2018-05-31] MEDS: PREGABALIN 75 MG CAPSULE PO SCH (08:59)
[2018-05-31] MEDS: hydroCHLOROthiazide 25 MG TABLET PO SCH (08:59)
[2018-05-31] MEDS: PANTOPRAZOLE 40 MG TABLET PO SCH (08:59)
[2018-05-31] MEDS: DOCUSATE SODIUM 100 MG CAPSULE PO SCH (09:00)
[2018-05-31] MEDS: AZITHROMYCIN 250 MG TABLET PO SCH (09:00)
[2018-05-31] MEDS: METOPROLOL TARTRATE 25 MG TABLET PO SCH (09:00)
[2018-05-31] MEDS: MULTIVITAMIN (CENTRUM) TABLET PO SCH (09:01)
[2018-05-31] MEDS: guaiFENesin/DM ER 600-30 MG TABLET PO PRN (09:01)
[2018-05-31] MEDS: FLUTICASONE/SALMETEROL 250-50 DISKUS 14 DOSE INH SCH (09:02)
[2018-05-31] MEDS: methylPREDNISolone SOD SUC 40 MG/1 ML VIAL IV SCH (09:04)
[2018-05-31 11:31] VITALS: BP 113/72
== END 2018-05-31 11:28 | disposition home or self-care (01) ==
LOC: N.EDINP 12:15 → N.ED 12:15 → SUATTDRO 14:19 → N.EDINP 16:25 → N.3E 16:38
PROVIDERS: ADMIT Internal Medicine; ATTEND Hospitalist

== ENCOUNTER 2020-08-03 10:12 | Observation (INO) ==
[2020-08-03 11:43] LABS: Basophils # 0.1 10*3/uL (0.0-0.2); Basophils % 0.5 % (0.0-0.8); Eosinophils # 0.2 10*3/uL (0.0-0.87); Eosinophils % 1.5 % (0.00-10.9); Hemoglobin 14.1 GM/DL (12.0-16.0); Immature Granulocytes % 0.4 %; Immature Granulocytes Absolute 0.04 #; Lymphocytes # 1.9 10*3/uL (1.4-4.0); Lymphocytes % 17.7 % (21.3-54.2); Mean Corpuscular HGB Conc 32.8 GM/DL (32-36); Mean Corpuscular Volume 91.3 FL (87-102); Mean Platelet Volume 10.8 FL (9.6-12.0); Monocytes % 8.1 % (1.7-12.7); Neutrophils % 71.8 % (38.7-73.9); Platelet Count 276 T/CUMM (130-400); Red Blood Count 4.71 MC/CUMM (3.8-5.5); Red Cell Distribution Width 13.1 % (9.3-17.3); White Blood Count 10.6 T/CUMM (4-12)
[2020-08-03 11:51] LABS: Eosinophils 1 % (0-10); Lymphocytes 13 % (20-55); Platelet Estimate Adequate; Segmented Neutrophils 79 % (50-85); Total Cells Counted 100
[2020-08-03 12:04] LABS: Alanine Aminotransferase 30 U/L (13-56); Albumin 3.1 G/DL (3.4-5.0); Alkaline Phosphatase 118 U/L (45-117); Aspartate Amino Transferase 32 U/L (0-37); Bilirubin,Total < 0.39 MG/DL (0.2-1.0); Blood Urea Nitrogen 8 MG/DL (7-18); Calcium 9.3 MG/DL (8.5-10.1); Carbon Dioxide 30 MMOL/L (21-32); Estimated Glom Filtration Rate 95 ML/MIN; Glucose 87 MG/DL (74-106); Osmolality,Calculated 271.7 MOS/KG (273-304); Potassium 3.8 MMOL/L (3.5-5.1); Sodium 138 MMOL/L (136-145); Total Protein 7.7 G/DL (6.4-8.2)
[2020-08-03] MEDS ORDERED: PIPERACILLIN/TAZOBACTAM 3,375 MG in SODIUM CHLORIDE 0.9% 100 ML IV STA (13:16)
[2020-08-03] MEDS ORDERED: ACETAMINOPHEN 325 MG TABLET PO PRN (13:42)
[2020-08-03] MEDS ORDERED: DEXTROSE 50% 25 GM/50 ML VIAL IV PRN (13:42)
[2020-08-03] MEDS ORDERED: ONDANSETRON 4 MG/2 ML VIAL IV PRN (13:42)
[2020-08-03] MEDS ORDERED: GLUCAGON 1 MG VIAL IM PRN (13:42)
[2020-08-03] MEDS ORDERED: NICOTINE 21 MG/24 HR PATCH TRANSDERM PRN (13:56)
[2020-08-03] MEDS ORDERED: hydrALAZINE 20 MG/1 ML VIAL IV PRN (14:02)
[2020-08-03] MEDS ORDERED: AZITHROMYCIN INJ 500 MG in SODIUM CHLORIDE 0.9% 250 ML IV SCH (15:00)
[2020-08-03] MEDS: ENOXAPARIN 40 MG/0.4 ML SYRINGE SUBCUT SCH (20:22)
[2020-08-03] MEDS: PIPERACILLIN/TAZOBACTAM 3,375 MG in SODIUM CHLORIDE 0.9% 100 ML IV SCH (20:22)
[2020-08-04] MEDS: PIPERACILLIN/TAZOBACTAM 3,375 MG in SODIUM CHLORIDE 0.9% 100 ML IV SCH ×3 (04:10→20:05)
[2020-08-04 05:17] LABS: Basophils % 0.4 % (0.0-0.8); Eosinophils # 0.2 10*3/uL (0.0-0.87); Eosinophils % 3.2 % (0.00-10.9); Hematocrit 42.8 VOL% (35.7-47.0); Hemoglobin 14.1 GM/DL (12.0-16.0); Immature Granulocytes % 0.1 %; Immature Granulocytes Absolute 0.01 #; Lymphocytes # 2.3 10*3/uL (1.4-4.0); Lymphocytes % 33.2 % (21.3-54.2); Mean Corpuscular HGB Conc 32.9 GM/DL (32-36); Mean Corpuscular Volume 91.1 FL (87-102); Mean Platelet Volume 11.2 FL (9.6-12.0); Monocytes % 8.7 % (1.7-12.7); Neutrophils % 54.4 % (38.7-73.9); Platelet Count 255 T/CUMM (130-400); White Blood Count 6.8 T/CUMM (4-12)
[2020-08-04 05:36] LABS: Eosinophils 6 % (0-10); Lymphocytes 32 % (20-55); Microcytosis Slight; Platelet Estimate Adequate; Segmented Neutrophils 57 % (50-85); Total Cells Counted 100
[2020-08-04 05:51] LABS: Calcium 8.9 MG/DL (8.5-10.1); Osmolality,Calculated 277.4 MOS/KG (273-304); Potassium 3.4 MMOL/L (3.5-5.1)
[2020-08-04] MEDS ORDERED: POTASSIUM CHLORIDE 20 MEQ TABLET PO ONE (08:00)
[2020-08-04] MEDS: METOPROLOL TARTRATE 50 MG TABLET PO SCH ×2 (12:08→20:04)
[2020-08-04] MEDS: PANTOPRAZOLE 40 MG TABLET PO SCH (12:08)
[2020-08-04] MEDS: ENOXAPARIN 40 MG/0.4 ML SYRINGE SUBCUT SCH (20:04)
[2020-08-05] MEDS: PIPERACILLIN/TAZOBACTAM 3,375 MG in SODIUM CHLORIDE 0.9% 100 ML IV SCH (04:41)
[2020-08-05 06:12] LABS: Basophils # 0.1 10*3/uL (0.0-0.2); Basophils % 0.6 % (0.0-0.8); Eosinophils # 0.2 10*3/uL (0.0-0.87); Eosinophils % 2.9 % (0.00-10.9); Hematocrit 43.1 VOL% (35.7-47.0); Hemoglobin 13.9 GM/DL (12.0-16.0); Immature Granulocytes % 0.4 %; Immature Granulocytes Absolute 0.03 #; Lymphocytes # 2.4 10*3/uL (1.4-4.0); Mean Corpuscular HGB Conc 32.3 GM/DL (32-36); Mean Corpuscular Volume 91.7 FL (87-102); Mean Platelet Volume 11.1 FL (9.6-12.0); Monocytes % 8.7 % (1.7-12.7); Neutrophils % 56.4 % (38.7-73.9); Platelet Count 279 T/CUMM (130-400); Red Cell Distribution Width 12.8 % (9.3-17.3); White Blood Count 7.8 T/CUMM (4-12)
[2020-08-05 06:23] LABS: Calcium 9.1 MG/DL (8.5-10.1); Potassium 4.5 MMOL/L (3.5-5.1)
[2020-08-05 06:51] LABS: Eosinophils 1 % (0-10); Hypochromasia Slight; Lymphocytes 25 % (20-55); Microcytosis Slight; Platelet Estimate Adequate; Segmented Neutrophils 63 % (50-85); Total Cells Counted 100
[2020-08-05 07:22] VITALS: BP 169/93
[2020-08-05 08:03] LABS: Calcium 8.9 MG/DL (8.5-10.1); Osmolality,Calculated 280.3 MOS/KG (273-304); Potassium 3.8 MMOL/L (3.5-5.1)
[2020-08-05] MEDS: METOPROLOL TARTRATE 50 MG TABLET PO SCH (08:50)
[2020-08-05] MEDS: PANTOPRAZOLE 40 MG TABLET PO SCH (08:50)
[2020-08-05] MEDS ORDERED: hydroCHLOROthiazide 25 MG TABLET PO SCH (09:00)
== END 2020-08-05 11:12 | disposition home or self-care (01) ==
LOC: N.EDINP 10:12 → N.ED 10:12 → SUATTDRO 13:42 → N.EDINP 16:41 → N.5E 16:43
PROVIDERS: ADMIT Internal Medicine; ATTEND Internal Medicine